=== PATIENT | male | born 1955 | race Caucasian/White ===

== ENCOUNTER 2017-07-24 18:49 | Emergency (ER) | payer MEDICAID ==
[2017-07-24 18:55] VITALS: BP 146/90; PULSE 82; RESP 18; TEMP 98; O2SAT 96
--- NOTE | 2017-07-24 19:17 | ED PDOC ---
Arrival/HPI - General Chief Complaint: Abnormal Skin Integrity Time Seen by Provider: 07/24/17 18:51 Historian: Patient - History of Present Illness Narrative History of Present Illness (Text): 07/24/17 19:05 A 61 year old male, whose past medical history includes diabetes, comes in with his and presents to the emergency department complaining of left hand laceration between the 3rd and 4th digits prior to arrival. Patient reports he was cutting avocados and his knife slipped, causing laceration. Patient has no other complaints. Also, patient mentions his last tetanus shot was 1-2 months ago, and he takes Metformin for diabetes. No PMD Time/Duration: Prior to Arrival Symptom Onset: Sudden Symptom Course: Unchanged Past Medical History - Provider Review Nursing Documentation Reviewed: Yes - Infectious Disease Hx of Infectious Diseases: None - Cardiac Hx Cardiac Disorders: Yes Hx Hypertension: Yes - Pulmonary Hx Respiratory Disorders: No - Neurological Hx Neurological Disorder: No - HEENT Hx Blind: No - Renal Hx Neurogenic Bladder: No - Endocrine/Metabolic Hx Endocrine Disorders: Yes Hx Diabetes Mellitus Type 2: Yes - Hematological/Oncological Hx Blood Disorders: No - Integumentary Hx Cellulitis: No - Musculoskeletal/Rheumatological Hx Osteoporosis: No - Gastrointestinal Hx Fatty Liver Disease: No - Genitourinary/Gynecological Hx Bladder Stone: No - Psychiatric Hx Bipolar Disorder: No Hx Substance Use: No - Anesthesia Hx Anesthesia: Yes Hx Anesthesia Reactions: No Family/Social History - Physician Review Nursing Documentation Reviewed: Yes Family/Social History: No Known Family HX Smoking Status: Never Smoked Hx Alcohol Use: No Hx Substance Use: No Allergies/Home Meds Allergies/Adverse Reactions: Allergies No Known Allergies Allergy (Verified 07/24/17 18:51) Home Medications: Home Meds Medication Instructions Recorded Confirmed Lisinopril [Zestril] 10 mg PO DAILY 07/24/17 07/24/17 metFORMIN [glucOPHAGE] 1,000 mg PO DAILY 07/24/17 07/24/17 Review of Systems - Review of Systems Constitutional: absent: Fevers Respiratory: absent: SOB, Cough Cardiovascular: absent: Chest Pain Gastrointestinal: absent: Abdominal Pain, Nausea, Vomiting Skin: Laceration (left hand laceration between the 3rd and 4th digit) Physical Exam Vital Signs Reviewed: Yes Vital Signs Temp Pulse Resp BP Pulse Ox 07/24/17 18:54 98.0 F 82 18 146/90 96 Temperature: Afebrile Blood Pressure: Normal Pulse: Regular Respiratory Rate: Normal Appearance: Positive for: Well-Appearing Pain Distress: None Mental Status: Positive for: Alert and Oriented X 3 - Systems Exam Head: Present: Atraumatic Pupils: Present: PERRL Mouth: Present: Moist Mucous Membranes Neck: Present: Normal Range of Motion Respiratory/Chest: Present: Clear to Auscultation. No: Respiratory Distress, Accessory Muscle Use Cardiovascular: Present: Regular Rate and Rhythm Upper Extremity: Present: Normal ROM, Capillary Refill < 2s, Other (normal strength in flexion and extension tendons of fingers and thumb) Neurological: Present: GCS=15, Motor Func Grossly Intact, Normal Sensory Function Skin: Present: Laceration (1 cm laceration of webbing between 3rd and 4th digits of left hand; actively bleeding.) Psychiatric: Present: Alert, Oriented x 3 Medical Decision Making ED Course and Treatment: 07/24/17 19:47 PROCEDURE: LACERATION REPAIR Performed by the emergency provider Location: left hand webbing between 3rd and 4th digits Length: 1 cm linear Distal CMS: Normal. No deficits. Neurovascularly intact. Anesthesia: Lidocaine 1% Preparation: The wound was cleaned with NS and [place]. The area was prepped and draped in the usual sterile fashion. Procedure: The wound was closed with 4-0 nylon. There was good approximation and hemostasis was achieved. In total, 1 suture was used. Post-Procedure: Good closure and hemostasis. The patient tolerated the procedure well and there were no complications. The hand remains neurovascularly intact with good strength w flexion and extension and normal cap refill and sensation. Post procedure dressing applied. - Medication Orders Current Medication Orders: Discontinued Medications Lidocaine HCl (Lidocaine 1% (20ml)) Confirm Administered Dose 20 ml .ROUTE .STK- MED ONE Stop: 07/24/17 19:29 Oxycodone/Acetaminophen (Percocet 5/325 Mg Tab) 1 tab PO STAT STA Stop: 07/24/17 19:49 Last Admin: 07/24/17 20:05 Dose: 1 tab MAR Pain Assessment Document 07/24/17 20:05 EWO (Rec: 07/24/17 20:06 [facility] [id number]) Pain Reassessment Is this a pain reassessment? No Sleep Is patient sleeping during reassessment? No Presence of Pain Presence of Pain Yes Pain Scale Used Pain Scale Used Numeric - Scribe Statement The provider has reviewed the documentation as recorded by the Doraibannabelle Rivera Provider Scribe Attestation: All medical record entries made by the Scribe were at my direction and personally dictated by me. I have reviewed the chart and agree that the record accurately reflects my personal performance of the history, physical exam, medical decision making, and the department course for this patient. I have also personally directed, reviewed, and agree with the discharge instructions and disposition. Disposition/Present on Arrival - Present on Arrival Any Indicators Present on Arrival: No History of DVT/PE: No History of Uncontrolled Diabetes: No Urinary Catheter: No History of Decub. Ulcer: No History Surgical Site Infection Following: None - Disposition Have Diagnosis and Disposition been Completed?: Yes Diagnosis: Hand laceration Disposition: HOME/ ROUTINE Disposition Time: 20:07 Condition: STABLE Discharge Instructions (ExitCare): Care For Your Stitches (ED) Additional Instructions: Please follow up with your doctor or return here to have your suture removed in about 10 days. Return to the ER for any signs of infection or for any other concerns. Prescriptions: Cephalexin [Keflex] 500 mg PO BID #6 capsule Forms: Education Everytime ([place])
[2017-07-24] MEDS ORDERED: Lidocaine 1% Inj (20ml) ONE (19:28)
[2017-07-24] MEDS ORDERED: Oxycodone/Acetaminophen 5/325 mg Tab PO STA (19:48)
== END 2017-07-24 20:07 | disposition home or self-care (01) ==
LOC: ED 18:49
DX: S61.412A Laceration without foreign body of left hand, initial encounter (principal); W26.0XXA Contact with knife, initial encounter; Y93.G1 Activity, food preparation and clean up; Y92.89 Other specified places as the place of occurrence of the external cause

== ENCOUNTER 2018-11-08 14:59 | Emergency (ER) | payer OTHER ==
[2018-11-08 15:07] VITALS: BMI 22.6
[2018-11-08 15:09] VITALS: TEMP 98.3
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
[2018-11-08 17:24] VITALS: BP 140/84; PULSE 90; RESP 19; O2SAT 100
== END 2018-11-08 17:09 | disposition home or self-care (01) ==
LOC: ED 14:59
DX: S43.402A Unspecified sprain of left shoulder joint, initial encounter (principal); V68.5XXA Driver of heavy transport vehicle injured in noncollision transport accident in traffic accident, initial encounter; Y92.410 Unspecified street and highway as the place of occurrence of the external cause